=== PATIENT | female | born 1980 | race Two or more races ===

== ENCOUNTER → 2020-07-28 | Outpatient (CLI) | payer BC ==
--- NOTE | 2020-07-28 11:58 | MR ---
EXAMINATION TYPE: MR brain wo/w con DATE OF EXAM: 07/28/2020 COMPARISON: None HISTORY: Headache, dizziness TECHNIQUE: Multiplanar, multisequence images of the brain and brainstem is performed without and with IV contras t, utilizing 7.5 mL intravenous Gadavist . FINDINGS: Diffusion weighted images demonstrate no evidence of a recent infarct or other diffusion ab normality. There is no extra-axial fluid collection or significant white matter signal abnormality. The ventricular system and cisternal spaces are normal in size and appearance. The brain volume is age appropriate. Midline structures demonstrate normal morphology. The craniocervical junction appears within normal limits. Post contrast images demonstrate abnormal enhancement at the level of inner table of the lef t frontal bone, dural based focus measuring approximately 1 cm causes some minimal local mass effect is isointense and inversion recovery and T2-weighted sequences, T1 weighted sequences. The dural veno us sinuses appear patent. The visualized sinuses are clear and the globes are intact. Focal increased signal in the right frontal bone, axial image 21, 22 shows enhancement following contrast administra tion. IMPRESSION: Probable meningioma left frontal region inner table. Calvarial lesion in the right fronta l bone may represent hemangioma. Consider bone scan, CT as indicated, follow-up could be performed to assess for stability.
== END | disposition home or self-care (01) ==
LOC: RADMRIMAIN 10:29
PROVIDERS: ATTEND Internal Medicine Medical Oncology
DX: G93.89 Other specified disorders of brain (principal); C50.919 Malignant neoplasm of unspecified site of unspecified female breast
CPT/HCPCS: 70553; A9585

== ENCOUNTER → 2022-07-19 | Outpatient (CLI) | payer BC ==
--- NOTE | 2022-07-20 07:29 | US ---
EXAMINATION TYPE: US thyroid st tissue head/neck DATE OF EXAM: 07/19/2022 COMPARISON: NONE CLINICAL HISTORY: E03.9 hypothyroidism dysphagia. Hypothyroid GLAND SIZE: Right Lobe: 3.8 x 1.6 x 2.1 cm Overall Parenchyma: heterogenous Left Lobe: 3.0 x 1.0 x 1.1 cm Overall Parenchyma: heterogeneous Isthmus Thickness: 0.2 cm NODULES RIGHT: # of nodules measured on right: 0 LEFT: # of nodules measured on left: 0 ISTHMUS: # of nodules measured in the isthmus: 0 Bilateral neck scanned, no evidence of lymphadenopathy. IMPRESSION: No evidence of thyroid nodule. Mild heterogenous thyroid gland parenchyma which can be seen in settin g of hyperthyroidism.
== END | disposition home or self-care (01) ==
LOC: RADUSWWP 16:19
PROVIDERS: ATTEND Family Medicine
DX: E07.89 Other specified disorders of thyroid (principal)
CPT/HCPCS: 76536

== ENCOUNTER → 2023-09-03 | Outpatient (CLI) | payer BC ==
--- NOTE | 2023-09-03 13:56 | US ---
EXAMINATION TYPE: US axilla LT DATE OF EXAM: 09/03/2023 COMPARISON: NONE CLINICAL INDICATION: Female, 42 years old with history of R59.0 LOCALIZED ENLARGED LYMPH NODES; Pt st ates palpable lump, "jagged feeling" left axilla, slightly extending down posterior left arm TECHNIQUE: Inside [employer] notes: Left axilla extending down posterior left arm FINDINGS: Inside [employer] notes:No abnormality visualized to account for pt's symptoms IMPRESSION: Targeted scanning along the patient's area of concern left axilla extending down the pos terior aspect of the left arm. No specific radiographic abnormalities seen.
== END | disposition home or self-care (01) ==
LOC: RADUSWWP 07:35
PROVIDERS: ATTEND Family Medicine
DX: R59.0 Localized enlarged lymph nodes (principal)

== ENCOUNTER → 2024-07-31 | Outpatient (CLI) | payer BC ==
[2024-08-01 02:21] LABS: Basophils # (A) 0.03 X 10*3/uL (0.00-0.10); Basophils % (A) 0.4 %; Eosinophils # (A) 0.21 X 10*3/uL (0.04-0.35); HCT 39.5 % (37.2-46.3); HGB 12.7 g/dL (12.0-15.0); Lymphocytes # (A) 2.37 X 10*3/uL (0.90-5.00); Lymphocytes % (A) 34.3 %; MCH 29.8 pg (27.0-32.0); MCHC 32.2 g/dL (32.0-37.0); MCV 92.7 FL (80.0-97.0); Mean Platelet Volume 10.4 FL (9.5-12.2); Monocytes # (A) 0.65 X 10*3/uL (0.20-1.00); Monocytes % (A) 9.4 %; NRBC Per 100 WBC 0 X 10*3/uL (0.00-0.01); Neutrophils # (A) 3.64 X 10*3/uL (1.80-7.70); Neutrophils % (A) 52.8 %; Platelet Count 310 X 10*3/uL (140-440); RBC 4.26 X 10*6/uL (4.10-5.20); RDW 12.4 % (11.5-14.5); WBC 6.91 X 10*3/uL (4.50-10.00)
[2024-08-01 02:34] LABS: ALT 30 U/L (8-44); AST 26 U/L (13-35); Albumin 4.4 g/dL (3.8-4.9); Albumin/Globulin Ratio 1.69 Ratio (1.60-3.17); Alkaline Phosphatase 49 U/L (41-126); BUN/Creat Ratio 19.14 Ratio (12.00-20.00); Blood Urea Nitrogen 13.4 mg/dL (9.0-27.0); Calcium 9.5 mg/dL (8.7-10.3); Carbon Dioxide 24.7 mmol/L (21.6-31.8); Chloride 103 mmol/L (96-109); Globulin 2.6 g/dL (1.6-3.3); Glucose 80 mg/dL (70-110); Potassium 4.6 mmol/L (3.5-5.5); Sodium 139 mmol/L (135-145); T4, Free (Free Thyroxine) 1.14 ng/dL (0.80-1.80); Total Bilirubin 0.2 mg/dL (0.3-1.2)
== END | disposition home or self-care (01) ==
LOC: LABWHC1 15:06
PROVIDERS: ATTEND Nurse Practitioner Family
DX: E03.9 Hypothyroidism, unspecified (principal); R11.2 Nausea with vomiting, unspecified; R53.83 Other fatigue
CPT/HCPCS: 36415; 80053; 84439; 84443; 85025

== ENCOUNTER → 2024-08-27 | Outpatient (CLI) | payer BC ==
[2024-08-27 15:37] LABS: T4, Free (Free Thyroxine) 1.29 ng/dL (0.80-1.80)
== END | disposition home or self-care (01) ==
LOC: LABWHC1 08:04
PROVIDERS: ATTEND Nurse Practitioner Family
DX: E03.9 Hypothyroidism, unspecified (principal)
CPT/HCPCS: 36415; 84439; 84443

== ENCOUNTER → 2024-10-14 | Outpatient (CLI) | payer BC ==
[2024-10-14 09:11] LABS: Appearance,Urine Clear (Clear); Bilirubin,Urine Negative (Negative); Blood,Urine Negative (Negative); Color,Urine Light Yellow; Glucose,Urine (UA) Negative (Negative); Ketones,Urine Negative (Negative); Leukocyte Esterase,Urine Negative (Negative); Nitrite,Urine Negative (Negative); PH, Urine 6.5 (5.0-8.0); Protein,Urine Negative (Negative); Specific Gravity,Urine 1.016 (1.001-1.035); Urobilinogen,Urine <2.0 mg/dL (<2.0)
[2024-10-14 10:48] LABS: Basophils # (A) 0.04 X 10*3/uL (0.00-0.10); Basophils % (A) 0.5 %; Eosinophils # (A) 0.21 X 10*3/uL (0.04-0.35); Eosinophils % (A) 2.7 %; HCT 39.2 % (37.2-46.3); Lymphocytes # (A) 2.68 X 10*3/uL (0.90-5.00); Lymphocytes % (A) 34.9 %; MCH 30.1 pg (27.0-32.0); MCHC 33.2 g/dL (32.0-37.0); MCV 90.7 FL (80.0-97.0); Mean Platelet Volume 10.5 FL (9.5-12.2); Monocytes # (A) 0.62 X 10*3/uL (0.20-1.00); Monocytes % (A) 8.1 %; NRBC Per 100 WBC 0 X 10*3/uL (0.00-0.01); Neutrophils # (A) 4.11 X 10*3/uL (1.80-7.70); Neutrophils % (A) 53.5 %; Platelet Count 332 X 10*3/uL (140-440); RBC 4.32 X 10*6/uL (4.10-5.20); RDW 12.4 % (11.5-14.5); WBC 7.68 X 10*3/uL (4.50-10.00)
[2024-10-14 10:55] LABS: ALT 23 U/L (8-44); AST 24 U/L (13-35); Albumin 4.3 g/dL (3.8-4.9); Albumin/Globulin Ratio 1.87 Ratio (1.60-3.17); Alkaline Phosphatase 54 U/L (41-126); Amylase 47 U/L (23-121); Calcium 9.4 mg/dL (8.7-10.3); Carbon Dioxide 27.2 mmol/L (21.6-31.8); Chloride 98 mmol/L (96-109); Chol/HDL Ratio 3.44 Ratio; Globulin 2.3 g/dL (1.6-3.3); Glucose 99 mg/dL (70-110); LDL Cholesterol,Calculated 108.3 mg/dL (0.0-131.0); Potassium 4.1 mmol/L (3.5-5.5); Sodium 134 mmol/L (135-145); Total Bilirubin 0.4 mg/dL (0.3-1.2); Total Protein 6.6 g/dL (6.2-8.2); VLDL Calculation 17.28 mg/dL (5.00-40.00)
== END | disposition home or self-care (01) ==
LOC: LABWHC1 07:53
PROVIDERS: ATTEND Orthopaedic Surgery
DX: R10.32 Left lower quadrant pain (principal); R10.12 Left upper quadrant pain; R19.4 Change in bowel habit
CPT/HCPCS: 36415; 80053; 80061; 81003; 82150; 85025; 87086

== ENCOUNTER → 2024-10-19 | Outpatient (CLI) | payer BC ==
--- NOTE | 2024-10-19 20:09 | CT ---
INDICATION: Patient age:Female; 43 years old; Reason for study: R10.12 LUQ ABD PAIN R10.32 LLQ ABD PAIN; PHH. COMPARISON: None. TECHNIQUE: Standard CT of the abdomen and pelvis following the administration of 100 cc of Isovue 3 70 IV contrast material. Coronal and sagittal reformats were performed. One or more CT dose reduction strategies were utilized during this examination. Total DLP administered was 795.5 mGycm. FINDINGS: LOWER CHEST: Bilateral breast implants partially visualized. ABDOMEN LIVER: Unremarkable. GALLBLADDER AND BILE DUCTS: The gallbladder is surgically absent. PANCREAS: Unremarkable. SPLEEN: Unremarkable. ADRENAL GLANDS: Unremarkable. KIDNEYS AND URETERS: No evidence of hydronephrosis or renal calculus. The ureters are unremarkable. PELVIS URINARY BLADDER: Incompletely distended but grossly unremarkable. REPRODUCTIVE: Follicular changes are suggested in the bilateral adnexa with nabothian cysts in the ce rvix. These findings are however suboptimally characterized on this exam. ABDOMEN & PELVIS STOMACH AND BOWEL: The stomach is grossly unremarkable. Small bowel is of normal caliber. The appendi x is visualized and is within normal limits. No evidence of bowel obstruction. PERITONEUM: No evidence of pneumoperitoneum or free fluid. VASCULATURE: No aneurysmal changes. MUSCULOSKELETAL: No acute osseous abnormality. LYMPH NODES: Unremarkable. SOFT TISSUE/ABDOMINAL WALL: Unremarkable IMPRESSION: 1. No acute intra-abdominal/pelvic process. 2. Follicular changes are suggested in the bilateral adnexa with nabothian cysts in the cervix. These findings are however suboptimally evaluated on this exam. Recommend dedicated pelvic ultrasound for further characterization. [facility], , 10/19/2024 8:07 PM
== END | disposition home or self-care (01) ==
LOC: RADCTMAIN 17:03
PROVIDERS: ATTEND Family Medicine
DX: N88.8 Other specified noninflammatory disorders of cervix uteri (principal); K59.00 Constipation, unspecified
CPT/HCPCS: 74177; Q9967

== ENCOUNTER → 2024-11-26 | Outpatient (CLI) | payer BC ==
--- NOTE | 2024-11-26 16:56 | US ---
EXAMINATION TYPE: US pelvis complete transvag DATE OF EXAM: 11/26/2024 COMPARISON: US pelvis November 04 2024 CLINICAL INDICATION: Female, 43 years old with history of [id number] OVARIAN CYST; Follow up ovarian cyst s TECHNIQUE: Transvaginal (TV) and Transabdominal (TA) . FINDINGS: Date of LMP: Patient had ablation EXAM MEASUREMENTS: Uterus: 8.1 x 4.5 x 5.4 cm Endometrial Stripe: 0.6 cm Right Ovary: 1.9 x 1.2 x 1.5 cm Left Ovary: 4.5 x 2.3 x 2.2 cm 1. Uterus: retroverted, heterogeneous with 2.6cm hypoechoic area, possible fibroid 2. Endometrium: appears wnl 3. Right Ovary: wnl 4. Left Ovary: 1.6cm hypoechoic area with hyperechoic rim 5. Bilateral Adnexa: free fluid in left adnexa 6. Posterior cul-de-sac: free fluid Probable 2.6 cm uterine fibroid is redemonstrated. There is now moderate amount of free fluid in the pelvic cul-de-sac extending into the left adnexa. Prior 3.8 cm complex lesion in the left ovary is no t clearly seen on today's study. Instead there is 1.6 cm thick rim peripheral lesion likely reflectin g corpus luteal cyst from recent ovulation. IMPRESSION: Prior visualized 3.8 cm complex lesion left ovary has resolved in the interval. O-RADS 2021 [email or web address] [facility], , 11/26/2024 4:54 PM
== END | disposition home or self-care (01) ==
LOC: RADUSWWP 15:57
PROVIDERS: ATTEND Family Medicine
DX: N83.202 Unspecified ovarian cyst, left side (principal)
CPT/HCPCS: 76830; 76856

== ENCOUNTER → 2025-04-12 | Outpatient (CLI) | payer BC ==
[2025-04-12 10:31] LABS: T4, Free (Free Thyroxine) 0.93 ng/dL (0.80-1.80)
== END | disposition home or self-care (01) ==
LOC: LABWHC1 07:43
PROVIDERS: ATTEND Family Medicine
DX: E03.9 Hypothyroidism, unspecified (principal)
CPT/HCPCS: 36415; 84439; 84443

== ENCOUNTER → 2025-04-12 | Outpatient (CLI) | payer BC ==
--- NOTE | 2025-04-12 07:41 | USB ---
Reason for Exam: Follow-up at short interval from prior study. Risk Values: Hilda 5 year model risk: 0.4%. NCI Lifetime model risk: 6.6%. Technique: Method: Whole Breast Handheld. Findings: The whole breast of the left breast, the axilla of the left breast and the retroareolar of the left breast were scanned. A complete US of all four quadrants of the breast and retro-areolar region were reviewed. No solid or cystic masses are identified. No axillary adenopathy. Underlying breast implant is noted. Overall Assessment: Benign, BI-RAD 2 Management: Diagnostic Breast Ultrasound of both breasts in 1 year. Or subsequent imaging follow-up as otherwise clinically indicated. A clinical breast exam by your physician is recommended on an annual basis and results should be correlated with mammographic findings. This exam should not preclude additional follow-up of suspicious palpable abnormalities. Results were given to the patient verbally at the time of exam. [facility], , 04/12/2025 7:38 AM. Electronically signed and approved by: Hosea Cosby M.D. Radiologist
== END | disposition home or self-care (01) ==
LOC: RADUSWWP 07:01
PROVIDERS: ATTEND Internal Medicine Hematology & Oncology
DX: C50.912 Malignant neoplasm of unspecified site of left female breast (principal)